=== PATIENT | male | born 1990 | race Caucasian/White ===

== ENCOUNTER 2017-06-14 11:23 | Outpatient (CLI) | payer OTHER ==
[2015-01-01 18:50] VITALS: BMI 42.0
--- NOTE | 2017-06-14 13:58 | DI ---
EXAM: CHEST FRONTAL AND LATERAL VIEWS HISTORY: Cough. COMPARISON: 07/07/2007 FINDINGS: Heart size remains within normal limits. There are moderate airspace consolidations which appear to be in the lower aspect of both upper lobes, greater on the right. Infiltrates extend into the left lower lobe. There is no evidence of vascular congestion, pleural fluid or pneumothorax. IMPRESSION: Moderate bilateral pulmonary density thought to represent pneumonia. Follow-up is recomm ended to assure clearance.
== END 2017-06-14 11:24 | disposition home or self-care (01) ==
LOC: RAD 11:23
PROVIDERS: ATTEND Family Medicine
DX: R05 Cough (principal)

== ENCOUNTER 2017-06-21 11:01 | Outpatient (CLI) | payer OTHER ==
[2015-01-01 18:50] VITALS: BMI 42.0
--- NOTE | 2017-06-21 11:49 | DI ---
EXAM: Chest two view, frontal and lateral views. HISTORY: Pneumonia follow-up. COMPARISON: 06/14/2017. FINDINGS: Heart size is normal. Multifocal consolidation in both lungs again noted, probably unchan ged. No pleural effusion or pneumothorax identified. No acute osseous abnormality is seen. IMPRESSION: Stable bilateral pneumonia.
== END 2017-06-21 11:02 | disposition home or self-care (01) ==
LOC: RAD 11:01
PROVIDERS: ATTEND Family Medicine
DX: J18.9 Pneumonia, unspecified organism (principal)

== ENCOUNTER 2017-07-03 15:13 | Outpatient (CLI) ==
[2015-01-01 18:50] VITALS: BMI 42.0
--- NOTE | 2017-07-03 17:06 | DI ---
EXAM: Chest two view, frontal and lateral views. HISTORY: Pneumonia. COMPARISON: 06/21/2017. FINDINGS: Heart size is normal. Bilateral areas of consolidation appear slightly improved. No pleu ral effusion or pneumothorax identified. Probable bone island in the left scapula. IMPRESSION: Slight improvement in bilateral consolidation..
== END 2017-07-03 15:14 | disposition home or self-care (01) ==
LOC: RAD 15:13
PROVIDERS: ATTEND Family Medicine
DX: J18.9 Pneumonia, unspecified organism (principal)

== ENCOUNTER 2017-07-27 15:40 | Outpatient (CLI) | payer OTHER ==
[2015-01-01 18:50] VITALS: BMI 42.0
--- NOTE | 2017-07-27 17:24 | DI ---
EXAM: Chest two view, frontal and lateral views. HISTORY: Pneumonia follow-up. COMPARISON: 07/03/2017. FINDINGS: The heart size is normal. There is no pulmonary vascular congestion. Reticulonodular opa cities seen in both lung bases with some improved aeration in the lung bases since the prior study. Left perihilar consolidation is present. No pleural effusion or pneumothorax identified. No acute o sseous abnormality identified. IMPRESSION: Persistent left perihilar consolidation and bibasilar reticulonodular opacities with some improved ae ration since the prior study. Continued follow-up is recommended.
== END 2017-07-27 15:41 | disposition home or self-care (01) ==
LOC: RAD 15:40
PROVIDERS: ATTEND Family Medicine
DX: R05 Cough (principal)